=== PATIENT | female | born 1985 | race Caucasian/White ===

== ENCOUNTER 2017-06-05 22:05 | Emergency (ER) | payer BC ==
[2017-06-05] MEDS ORDERED: NS 0.9% 1000 ML*IV.FLUID IV ONE (22:42)
[2017-06-05] MEDS ORDERED: Acetaminophen TAB* 325 MG PO ONE (22:43)
[2017-06-05] MEDS ORDERED: LORazepam INJ* 2 MG/ML 1 ML VIAL IV PUSH ONE (22:44)
[2017-06-05 23:10] LABS: ABS Basophils 0.1 10^3/ul (0-0.2); ABS Eosinophils 0.1 10^3/ul (0-0.6); ABS Lymphocytes 1.6 10^3/ul (1.0-4.8); ABS Monocytes 0.7 10^3/ul (0-0.8); ABS Neutrophils 6.7 10^3/ul (1.5-7.7); ABS Nucleated RBC 0 10^3/ul; Eosinophil % 0.7 % (0-6); Hematocrit 40 % (35-47); Hemoglobin 13.5 g/dl (12.0-16.0); Lymphocyte % 17.5 % (25-47); Mean Corpuscular HGB Conc 34 g/dl (31-36); Mean Corpuscular Hemoglobin 29 pg (27-31); Mean Corpuscular Volume 86 fL (80-97); Mean Platelet Volume 8 um3 (7.4-10.4); Nucleated Red Blood Cells % 0; Platelet Count 212 10^3/ul (150-450); Red Blood Count 4.67 10^6/ul (4.0-5.4); Red Cell Distribution Width 13 % (10.5-15); White Blood Count 9.1 10^3/ul (3.5-10.8)
[2017-06-05 23:26] LABS: EGFR Non-African American 68.7 (>60)
[2017-06-05] MEDS ORDERED: Potassium Chlor TAB* 20 MEQ TAB.ER PO ONE (23:48)
[2017-06-06 00:52] LABS: Urine Appearance Clear; Urine Blood Negative (Negative); Urine Color Yellow; Urine Ketones Negative (Negative); Urine Protein Negative (Negative); Urine Specific Gravity 1.008 (1.010-1.030); Urine Urobilinogen Negative (Negative)
--- NOTE | 2017-06-06 01:11 | ED ---
Patrick Horn Tecjoon scribarnaldo for Slava Adrian MD on 06/05/17 at 2247 . HPI Chest Pain - HPI Summary HPI Summary: This patient is a 31 year old female presenting to [facility] accompanied by male working supervisor with a chief complaint of chest pressure since an hour ago. Patient states that she was just watching TV when her heart starting racing. Patient states that she had previous episode a week ago with similar sx. Patient denies use of any cold medications but has had recent illness. Symptoms aggravated by nothing. Symptoms alleviated by medication. 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 Patient additionally reports chills, shaking, fever. Patient denies a history of anxiety or panic attack. - History of Current Complaint Chief Complaint: EDDysrhythmPalp Time Seen by Provider: 06/05/17 22:26 Hx Obtained From: Patient Onset/Duration: Started Hours Ago Time of Onset: 21:30 Timing: Intermittent Initial Severity: Moderate Current Severity: None Pain Intensity: 0 Pain Scale Used: 0-10 Numeric Chest Pain Radiates: No Aggravating Factor(s): Nothing Alleviating Factor(s): OTC Meds Associated Signs and Symptoms: Positive: Other: - chills, shaking, fever - Allergy/Home Medications Allergies/Adverse Reactions: Allergies Allergy/AdvReac Type Severity Reaction Status Date / Time Amoxicillin Allergy Rash Verified 06/05/17 22:19 Metronidazole [From Flagyl] Allergy Shortness Verified 06/05/17 22:19 of Breath PMH/Surg Hx/FS Hx/Imm Hx Previously Healthy: Yes Opthamlomology History: Denies: Hx Legally Blind EENT History: Denies: Hx Deafness Psychiatric History: Denies: Hx Anxiety, Hx Panic Disorder Infectious Disease History: No Infectious Disease History: Denies: Traveled Outside the [place] in Last 30 Days - Family History Known Family History: Negative: Seizure Disorder - Social History Occupation: Employed Full-time Lives: Alone Hx Substance Use: No Substance Use Type: Reports: None Hx Tobacco Use: No Review of Systems Positive: Fever, Chills, Other - shaking Positive: Palpitations, Chest Pain All Other Systems Reviewed And Are Negative: Yes Physical Exam - Summary Physical Exam Summary: VITAL SIGNS: Reviewed. GENERAL: Patient is a well-developed and nourished female who is lying in the stretcher. Patient is not in any acute respiratory distress. Patient is very anxious. HEAD AND FACE: No signs of trauma. No ecchymosis, hematomas or skull depressions. No sinus tenderness. EYES: PERRLA, EOMI x 2, No injected conjunctiva, no nystagmus. EARS: Hearing grossly intact. Ear canals and tympanic membranes are within normal limits. MOUTH: Oropharynx within normal limits. NECK: Supple, trachea is midline, no adenopathy, no JVD, no carotid bruit, no c- spine tenderness, neck with full ROM. CHEST: Symmetric, no tenderness at palpation LUNGS: Clear to auscultation bilaterally. No wheezing or crackles. CVS: Regular Tachycardia. S1 and S2 present, no murmurs or gallops appreciated. ABDOMEN: Soft, non-tender. No signs of distention. No rebound no guarding, and no masses palpated. Bowel sounds are normal. EXTREMITIES: FROM in all major joints, no edema, no cyanosis or clubbing. NEURO: Alert and oriented x 3. No acute neurological deficits. Speech is normal and follows commands. SKIN: Dry and warm Triage Information Reviewed: Yes Vital Signs On Initial Exam: Initial Vitals Temp Pulse Resp BP Pulse Ox 100.4 F 137 20 155/111 100 06/05/17 22:15 06/05/17 22:15 06/05/17 22:15 06/05/17 22:15 06/05/17 22:15 Vital Signs Reviewed: Yes Diagnostics - Vital Signs Vital Signs Temp Pulse Resp BP Pulse Ox 06/05/17 22:15 100.4 F 137 20 155/111 100 - Laboratory Lab Results: Lab Results 06/05/17 06/05/17 06/05/17 Range/Units 23:00 23:00 23:00 WBC 9.1 (3.5-10.8) 10^3/ul RBC 4.67 (4.0-5.4) 10^6/ul Hgb 13.5 (12.0-16.0) g/dl Hct 40 (35-47) % MCV 86 (80-97) fL MCH 29 (27-31) pg MCHC 34 (31-36) g/dl RDW 13 (10.5-15) % Plt Count 212 (150-450) 10^3/ul MPV 8 (7.4-10.4) um3 Neut % (Auto) 73.3 (38-83) % Lymph % (Auto) 17.5 L (25-47) % Delta % (Auto) 7.9 (1-9) % Eos % (Auto) 0.7 (0-6) % Baso % (Auto) 0.6 (0-2) % Absolute Neuts (auto) 6.7 (1.5-7.7) 10^3/ul Absolute Lymphs (auto) 1.6 (1.0-4.8) 10^3/ul Absolute Monos (auto) 0.7 (0-0.8) 10^3/ul Absolute Eos (auto) 0.1 (0-0.6) 10^3/ul Absolute Basos (auto) 0.1 (0-0.2) 10^3/ul Absolute Nucleated RBC 0 10^3/ul Nucleated RBC % 0 APTT 26.4 (26.0-36.3) seconds Sodium 137 (133-145) mmol/L Potassium 3.0 L (3.5-5.0) mmol/L Chloride 101 (101-111) mmol/L Carbon Dioxide 26 (22-32) mmol/L Anion Gap 10 (2-11) mmol/L BUN 18 (6-24) mg/dL Creatinine 0.96 H (0.51-0.95) mg/dL Est GFR ( Amer) 88.4 (>60) Est GFR (Non-Af Amer) 68.7 (>60) BUN/Creatinine Ratio 18.8 (8-20) Glucose 123 H (70-100) mg/dL Lactic Acid (0.5-2.0) mmol/L Calcium 9.7 (8.6-10.3) mg/dL Total Bilirubin 0.50 (0.2-1.0) mg/dL AST 15 (13-39) U/L ALT 12 (7-52) U/L Alkaline Phosphatase 40 (34-104) U/L Troponin I 0.00 (<0.04) ng/mL C-Reactive Protein < 1.00 (< 5.00) mg/L Total Protein 7.1 (6.4-8.9) g/dL Albumin 4.3 (3.2-5.2) g/dL Globulin 2.8 (2-4) g/dL Albumin/Globulin Ratio 1.5 (1-3) TSH 1.22 (0.34-5.60) mcIU/mL Urine Color Urine Appearance Urine pH (5-9) Ur Specific Skipwith (1.010-1.030) Urine Protein (Negative) Urine Ketones (Negative) Urine Blood (Negative) Urine Nitrate (Negative) Urine Bilirubin (Negative) Urine Urobilinogen (Negative) Ur Leukocyte Esterase (Negative) Urine WBC (Auto) (Absent) Urine RBC (Auto) (Absent) Ur Squamous Epith Cells (Absent) Urine Bacteria (Absent) Urine Glucose (Negative) Influenza A (Rapid) (Negative) Influenza B (Rapid) (Negative) 06/05/17 06/06/17 06/06/17 Range/Units 23:00 00:25 00:32 WBC (3.5-10.8) 10^3/ul RBC (4.0-5.4) 10^6/ul Hgb (12.0-16.0) g/dl Hct (35-47) % MCV (80-97) fL MCH (27-31) pg MCHC (31-36) g/dl RDW (10.5-15) % Plt Count (150-450) 10^3/ul MPV (7.4-10.4) um3 Neut % (Auto) (38-83) % Lymph % (Auto) (25-47) % Delta % (Auto) (1-9) % Eos % (Auto) (0-6) % Baso % (Auto) (0-2) % Absolute Neuts (auto) (1.5-7.7) 10^3/ul Absolute Lymphs (auto) (1.0-4.8) 10^3/ul Absolute Monos (auto) (0-0.8) 10^3/ul Absolute Eos (auto) (0-0.6) 10^3/ul Absolute Basos (auto) (0-0.2) 10^3/ul Absolute Nucleated RBC 10^3/ul Nucleated RBC % APTT (26.0-36.3) seconds Sodium (133-145) mmol/L Potassium (3.5-5.0) mmol/L Chloride (101-111) mmol/L Carbon Dioxide (22-32) mmol/L Anion Gap (2-11) mmol/L BUN (6-24) mg/dL Creatinine (0.51-0.95) mg/dL Est GFR ( Amer) (>60) Est GFR (Non-Af Amer) (>60) BUN/Creatinine Ratio (8-20) Glucose (70-100) mg/dL Lactic Acid 1.4 (0.5-2.0) mmol/L Calcium (8.6-10.3) mg/dL Total Bilirubin (0.2-1.0) mg/dL AST (13-39) U/L ALT (7-52) U/L Alkaline Phosphatase (34-104) U/L Troponin I (<0.04) ng/mL C-Reactive Protein (< 5.00) mg/L Total Protein (6.4-8.9) g/dL Albumin (3.2-5.2) g/dL Globulin (2-4) g/dL Albumin/Globulin Ratio (1-3) TSH (0.34-5.60) mcIU/mL Urine Color Yellow Urine Appearance Clear Urine pH 6.0 (5-9) Ur Specific Skipwith 1.008 L (1.010-1.030) Urine Protein Negative (Negative) Urine Ketones Negative (Negative) Urine Blood Negative (Negative) Urine Nitrate Negative (Negative) Urine Bilirubin Negative (Negative) Urine Urobilinogen Negative (Negative) Ur Leukocyte Esterase Trace H (Negative) Urine WBC (Auto) Trace(0-5/hpf) (Absent) Urine RBC (Auto) Trace(0-2/hpf) (Absent) Ur Squamous Epith Cells Present H (Absent) Urine Bacteria Absent (Absent) Urine Glucose Negative (Negative) Influenza A (Rapid) Negative (Negative) Influenza B (Rapid) Negative (Negative) Result Diagrams: 06/05/17 23:00 06/05/17 23:00 Lab Statement: Any lab studies that have been ordered have been reviewed, and results considered in the medical decision making process. - Radiology CXR Xray Interpretation: No Acute Changes Radiology Interpretation Completed By: ED Physician, Radiologist - EKG 5605 Cardiac Rate: Tachycardia EKG Rhythm: Sinus Tachycardia - 105 BPM EKG Interpretation: Sinus Tachycardia, Normal axis. Normal interval. No ischemic changes Chest Pain Course/Dx - Course Course Of Treatment: This patient is a 31 year old female presenting to [facility] accompanied by male working supervisor with a chief complaint of chest pressure since an hour ago. Patient states that she was just watching TV when her heart starting racing. Patient states that she had previous episode a week ago with similar sx. An EKG, taken 2222, reveals Sinus Tachycardia (105 BPM), Normal axis. Normal interval. No ischemic changes .CXR reveals, per radiologist, No acute process. ED physician has reviewed this radiology report. Bloodwork Obtained. Urinalysis Obtained. In the ED course the patient was given Ativan, Tylenol, Potassium Chloride. I discussed patients imaging results. Patient is feeling better and her heart rate is <100. The patient will be discharged with a diagnosis for 1. Viral Syndrome and 2. Anxiety. Patient will be given a prescription for Xanax and is advised to follow up with PCP in 3 days. The patient is agreeable with this plan. - Diagnoses Provider Diagnoses: Anxiety, Viral syndrome Discharge - Discharge Plan Condition: Stable Disposition: HOME Prescriptions: ALPRAZolam TAB* [Xanax TAB*] 0.5 mg PO BID PRN #14 tab MDD 2 PRN Reason: Anxiety ALPRAZolam TAB* [Xanax TAB*] 0.5 mg PO BID PRN #14 tab MDD 2 PRN Reason: Anxiety Patient Education Materials: Viral Syndrome (ED), Anxiety (ED) Referrals: No Primary Care Phys,NOPCP [Primary Care Provider] - 3 Days Additional Instructions: The patient will be discharged with a diagnosis for 1. Viral Syndrome and 2. Anxiety. Patient will be given a prescription for Xanax and is advised to follow up with PCP in 3 days. The patient is agreeable with this plan. Take Motrin as needed for Viral syndrome. Take Xanax as directed. RETURN TO EMERGENCY DEPARTMENT FOR ANY NEW OR WORSENING SYMPTOMS The documentation as recorded by the Patrick vazquez Tecjoon accurately reflects the service I personally performed and the decisions made by me, Slava Adrian MD.
[2017-06-06 02:50] VITALS: BP 103/64
--- NOTE | 2017-06-06 08:00 | RAD ---
Indication: Fever. Chest pressure. Comparison: No relevant prior exams available on the [facility] PACS for comparison. Technique: Upright AP 2324 hours Report: Accounting for superimposed dense breast tissue the lungs and pleural spaces are clear. Negative for pneumothorax. The heart, pulmonary vasculature, and mediastinal contours are unremarkable. IMPRESSION: No evidence for pneumonia. Negative exam.
== END 2017-06-06 02:50 | disposition home or self-care (01) ==
LOC: ED 22:05
DX: F41.9 Anxiety disorder, unspecified (principal); B34.9 Viral infection, unspecified; Z88.0 Allergy status to penicillin
CPT/HCPCS: 36415; 71010; 80053; 81003; 81015; 83605; 84443; 84484; 85025; 85730; 86140; 87040; 87086; 87502; 93005; 96360; 96374; 99283; A9270-GY; J2060

== ENCOUNTER 2017-07-04 17:44 | Emergency (ER) | payer BC ==
[2017-07-04 19:52] VITALS: BP 137/88
--- NOTE | 2017-07-04 20:14 | UC ---
Cardiac HPI - HPI Summary HPI Summary: 31 y/o female presents to the urgent care c/o chest pressure w/ movement since after she visited the iropractor. She had a similar complaint about 1 month ago and she went to [place] [facility] She had a full work up and then she was discharged with ibuprofen and a follow up with pasteuriser operator. Auditing Manager did a holter monitor and everything was within normal limits. Today pain is 2/10 on the left lateral side of the ribs without any radiation. Pt denies dizziness, SOB, headache, abd pain, N/V/D. - History of Current Complaint Chief Complaint: UCGeneralIllness Stated Complaint: RIB PAIN Hx Obtained From: Patient Hx Last Menstrual Period: 07/04/17 Onset/Duration: Gradual Onset, Lasting Weeks - 4 weeks, Worse Since - June 30 Timing: Intermittent Episodes Lasting: Initial Severity: Moderate Current Severity: Moderate Pain Intensity: 5 Chest Pain Location: Left Lateral Character: Dull/Aching, Pressure/Squeezing Aggravating Factor(s): Exertion Alleviating Factor(s): Rest, OTC Meds Associated Signs & Symptoms: Positive: Chest Pain. Negative: Headaches, Dizziness, SOB, Nausea/Vomiting, Abdominal Pain Related History: Similar Episode/Dx as - costochondritis - Allergy/Home Medications Allergies/Adverse Reactions: Allergies Allergy/AdvReac Type Severity Reaction Status Date / Time Amoxicillin Allergy Rash Verified 07/04/17 19:43 Metronidazole [From Flagyl] Allergy Shortness Verified 07/04/17 19:43 of Breath PMH/Surg Hx/FS Hx/Imm Hx Previously Healthy: Yes - Pt denies PMHx - Surgical History Surgical History: None - Family History Known Family History: Positive: Hypertension, Diabetes Negative: Seizure Disorder - Social History Occupation: Employed Full-time Lives: With Family Alcohol Use: Occasionally Substance Use Type: None Smoking Status (MU): Former Smoker Review of Systems Constitutional: Negative Skin: Negative Eyes: Negative ENT: Negative Respiratory: Negative Cardiovascular: Chest Pain Gastrointestinal: Negative Genitourinary: Negative Motor: Negative Neurovascular: Negative Musculoskeletal: Negative Neurological: Negative Psychological: Negative Is Patient Immunocompromised?: No All Other Systems Reviewed And Are Negative: Yes Physical Exam Triage Information Reviewed: Yes Vital Signs: Initial Vital Signs Temp 100 F 07/04/17 19:44 Pulse 83 07/04/17 19:44 Resp 16 07/04/17 19:44 BP 137/88 07/04/17 19:44 Pulse Ox 98 07/04/17 19:44 Vital Signs Reviewed: Yes - Additional Comments Vital signs: reviewed General: awake and alert, in no obvious distress. Skin: [place], warm and dry, no diaphoresis, cyanosis or pallor. HEENT: -Head: normocephalic -Eyes: PERRLA, sclera and conjunctiva clear. -Ears:canals and TMs normal. -Nose: patent -Mouth/Throat: MMM, posterior pharynx clear. Neck: supple. FROM, No JVD, trachea in midline, no bruits. Chest: no orthopnea or dyspnea noted; no retractions or accessory muscle use, NT , no crepitus, CTA bilaterally, no wheezes, rhonchi, rales. Point tenderness on the left lateral side of the ribs and left side of the sternum. No swelling observed or erythema. Heart: RRR, no murmur, rub, or gallop. Abd: soft, NT, BSA, no epigastric tenderness, mass, pulsation; femoral pulses. Back: NT, no CVAT Extrems: no swelling, edema, tenderness. Neuro: A&O x 4, GCS 15, CNII XII intact, no LOC and no focal neuro deficits. - Assessment/Plan Course Of Treatment: 31 y/o female presents to the urgent care c/o chest pressure w/ movement since after she visited the [facility]. She had a similar complaint about 1 month ago and she went to [place] [facility]. She had a full work up and then she was discharged with ibuprofen and a follow up with pasteuriser operator. Auditing Manager did a holter monitor and everything was within normal limits. Today pain is 2/10 on the left lateral side of the ribs without any radiation. Pt denies dizziness, SOB, headache, abd pain, N/V/D. Hx obtained. EKG ordered. EKG shows NSR, heart rate of 80 bpm, normal axis, No ST elevations or depressions. Dr. Rivers consulted on pt's symptoms. She reviewed EKG and compared with previous one and agreed that normal EKG. Pt with costochondritis. Pt prescribed Tylenol and Omeprazole PO to alleviate symptoms. Advised to flu with her pasteuriser operator if not improvement of symptoms. However if she developed SOB and severe chest pain to go immediately to the ER for further management. Pt explained D/C instructions. Pt understood and agreed with plan of care. Left the clinic A&OX3 and hemodynamically stable. - Differential Diagnoses - Chest Pain Differential Diagnosis/HQI/PQRI: Acute UT, Angina, GI Disease, Pulmonary Embolism - Differential Diagnoses - Palpitations Differential Diagnosis/HQI/PQRI: Cardiomyopathy, Mitral Valve Prolapse, Pericarditis, Pulmonary Embolism - Clinical Impression Provider Diagnoses: 1 - Costochondritis. 2 - GERD Discharge - Discharge Plan Condition: Stable Disposition: HOME Prescriptions: Acetaminophen TAB* [Tylenol TAB*] 650 mg PO Q6H PRN #30 tab PRN Reason: Pain Omeprazole CAP* [Prilosec CAP* 20 MG] 20 mg PO DAILY #30 cap. Patient Education Materials: Costochondritis (ED), Gastroesophageal Reflux Disease (ED) Referrals: Sharona Amaro [Primary Care Provider] - 3 Days Additional Instructions: 1-Please take Tylenol PO q6-8hrs prn as instructed after meals to alleviate pain and swelling. Avoid strenuous exercise 2- Take Omeprazole PO as directed for GERD. Avoid spicy food, tomato sauce, chocolates etc. 3-Please f/u with your PCP in 2-3 days for further evaluation and treatment. 4-If you develop SOB, palpitation, severe chest pain, please go immediately to the Er for further treatment
== END 2017-07-04 21:06 | disposition home or self-care (01) ==
LOC: UCEAST 17:44
DX: M94.0 Chondrocostal junction syndrome [Tietze] (principal); K21.9 Gastro-esophageal reflux disease without esophagitis; Z88.1 Allergy status to other antibiotic agents; Z87.891 Personal history of nicotine dependence
CPT/HCPCS: 93005; 99212; G0463

== ENCOUNTER 2017-10-20 17:45 | Emergency (ER) | payer BC ==
[2017-10-20 18:13] VITALS: BP 123/86
[2017-10-20] MEDS ORDERED: diPHENhydraMINE IV* 50 MG/ML 1 ml VIAL (BENADRYL) IV ONE (18:27)
[2017-10-20] MEDS ORDERED: Metoclopramide TAB* 10 MG PO ONE (18:27)
[2017-10-20] MEDS ORDERED: Ketorolac INJ* 60 MG/2 ML VIAL IM ONE (18:27)
[2017-10-20] MEDS ORDERED: Ketorolac INJ* 60 MG/2 ML VIAL IV PUSH ONE ×2 (18:32→18:34)
[2017-10-20] MEDS ORDERED: Metoclopramide IV* 5 MG/ML 2 ML VIAL IV ONE (18:33)
[2017-10-20] MEDS ORDERED: NS 0.9% 1000 ML* 1,000 ML IV ONE (18:34)
[2017-10-20] MEDS ORDERED: Ketorolac INJ* 30 MG/ML 1 ML VIAL IV PUSH ONE (18:36)
--- NOTE | 2017-10-20 19:20 | RAD ---
INDICATION: Headache COMPARISON: None TECHNIQUE: Noncontrast axial source images were acquired from the skull base to the vertex. FINDINGS: Ventricles/sulci: The ventricles and cisterns are normal in size and configuration for age. Brain parenchyma: There is no focal parenchymal finding, evidence of intracranial mass, or intracranial mass effect. Intracranial hemorrhage:None. Extra-axial spaces: There are no abnormal extra axial fluid collections or evidence of extra-axial mass. Calvarium: There is no calvarial fracture or other calvarial abnormality. Scalp: There is no evidence of scalp or extracalvarial soft tissue abnormality. Paranasal sinuses/mastoid: The paranasal sinuses and mastoid air cells are clear. Other: None. IMPRESSION: NEGATIVE EXAMINATION
--- NOTE | 2017-10-20 19:41 | UC ---
Jhoan Horn Natalie, scribed for Guillaume Layne MD on 10/20/17 at 1838 . Headache HPI - HPI Summary HPI Summary: The patient is a 32 y/o F presenting to [facility] c/o headache in her left temporal and occipital area that started three weeks ago. The intermittent pain is rated 6/10 in severity. She has taken Ibuprofen and Tylenol today (which usually help) , accompanied by a walk, to little relief. She states that she has a lot of pressure to her head after taking the walk. Now she has a burning pain to the back of her head, and states that this is the worst headache of her life, so she came to . She additionally c/o burning in her nostrils and nausea without vomiting. She denies light sensitivity and visual changes. - History Of Current Complaint Chief Complaint: UCHeadache Stated Complaint: HEADACHE Time Seen by Provider: 10/20/17 18:17 Hx Obtained From: Patient Hx Last Menstrual Period: 07/04/17 Onset/Duration: Sudden Onset, Still Present Onset Of Symptoms: Gradual, Still Present Initially Headache Was: "Worst Headache Ever", Moderate Currently Pain Is: Current Pain Scale(0-10)= - 6 Pain Intensity: 6 Pain Scale Used: 0-10 Numeric Timing: Intermittent, Lasting: Character: Pressure Location of Headache: Other: - left Aggravating Factor(s): Nothing Allevating Factor(s): Medication - ibuprofen, tylenol Associated Signs And Symptoms: Positive: Nausea, Neck Pain. Negative: Vomiting - Allergies/Home Medications Allergies/Adverse Reactions: Allergies Allergy/AdvReac Type Severity Reaction Status Date / Time amoxicillin Allergy Rash Verified 10/20/17 18:13 metronidazole [From Flagyl] Allergy Shortness Verified 10/20/17 18:13 of Breath Home Medications: Home Medications Acetaminophen TAB* [Tylenol TAB*] 1,000 mg PO Q6H PRN 10/20/17 [History Confirmed 10/20/17] Ibuprofen 600 mg PO 10/20/17 [History] PMH/Surg Hx/FS Hx/Imm Hx Other Endocrine History: NEGATIVE: diabetes Other Cardiovascular History: NEGATIVE: cardiac disease - Surgical History Surgical History: Yes Surgery Procedure, Year, and Place: [facility] - Family History Known Family History: Positive: Hypertension, Diabetes Negative: Seizure Disorder - Social History Alcohol Use: Rare Substance Use Type: None Smoking Status (MU): Former Smoker Review of Systems Eyes: Other - NEGATIVE: vision changes, light sensitivity ENT: Other - POSITIVE: burning in nostrils; NEGATIVE: neck pain Gastrointestinal: Nausea, Other - NEGATIVE: vomiting Neurological: Headache - left temporal/occipital All Other Systems Reviewed And Are Negative: Yes Physical Exam - Summary Physical Exam Summary: VITAL SIGNS: Reviewed. GENERAL: Patient is a well-developed and nourished young female who is lying comfortable in the stretcher. Patient is not in any acute respiratory distress. She is in some distress connected to pain, but she is not ill-looking. HEAD AND FACE: Normocephalic EYES: PERRLA, EOMI x 2. EARS: Hearing grossly intact. MOUTH: Oropharynx within normal limits. NECK: Supple, trachea is midline, no adenopathy, no JVD, no carotid bruit. No neck pain, Meningeal signs. Afebrile. CHEST: Symmetric, no tenderness at palpation LUNGS: Clear to auscultation bilaterally. No wheezing or crackles. CVS: Regular rate and rhythm, S1 and S2 present, no murmurs or gallops appreciated. ABDOMEN: Soft, non-tender. Bowel sounds are normal. No abdominal abnormal pulsations. EXTREMITIES: Full ROM in all major joints, no edema, no cyanosis or clubbing. NEURO: Alert and oriented x 3. No acute neurological deficits. Speech is normal and follows commands. SKIN: Dry and warm Triage Information Reviewed: Yes Vital Signs: Initial Vital Signs Temp 99.0 F 10/20/17 18:08 Pulse 90 10/20/17 18:08 Resp 18 10/20/17 18:08 BP 123/86 10/20/17 18:08 Pulse Ox 100 10/20/17 18:08 Vital Signs Reviewed: Yes Diagnostics - Radiology Brain CT Xray Interpretation: No Acute Changes - Negative examination. [facility] physician has reviewed this report. Radiology Interpretation Completed By: Radiologist Re-Evaluation - Re-Evaluation First Eval Re-Evaluation Time: 19:34 Change: Improved Comment: The patient feels better after IV fluid and medication intake. Headache Course/Dx - Course Course Of Treatment: The patient is a 32 y/o F presenting to [facility] c/o headache in her left temporal and occipital area that started three weeks ago. The intermittent pain is rated 6/10 in severity. She has taken Ibuprofen and Tylenol FREIGHT RATE CLERK, accompanied by a walk, to little relief. She states that she has a lot of pressure to her head after taking the walk. Now she has a burning pain to the back of her head, and states that this is the worst headache of her life , so she came to . She additionally c/o burning in her nostrils and nausea without vomiting. She denies light sensitivity and visual changes. The patient was found to have increased BP in UC. The patient will follow up with PCP for better control of BP. test is negative, so patient will get Brain CT. Brain CT is negative. In the UC, the patient was administered IV fluids, IV Toradol, and IV Reglan. After IV medications, the patient feels better. I believe the patient has a complex minor headache. She will be discharged home with prescription for Ibuprofen and Reglan for managing nausea. She is advised to return to UC if symptoms worsen. I discussed all the findings and test results with the patient. Patient was instructed to return to the urgent care or go to ER immediately if any of the symptoms return or worsens. Plan of care was discussed with the patient, and patient understands and agrees. All questions were answered to patient satisfaction. There were no further complaints or concerns. - Differential Dx/Diagnosis Provider Diagnoses: Complex headache Discharge - Sign-Out/Discharge Documenting (check all that apply): Discharge/Admit/Transfer - Discharge Plan Condition: Stable Disposition: HOME Prescriptions: Ibuprofen TAB* [Motrin TAB* 600 MG] 600 mg PO Q8H PRN #30 tab PRN Reason: Pain Metoclopramide TAB* [Reglan TAB*] 10 mg PO Q8H #10 tab Patient Education Materials: Acute Headache (ED) Referrals: Sharona Amaro [Primary Care Provider] - Additional Instructions: FOLLOW UP WITH YOUR PRIMARY CARE PROVIDER WITHIN ONE WEEK FOR HIGH BLOOD PRESSURE NOTED TODAY. RETURN TO URGENT CARE OR THE ED FOR ANY WORSENING OR NEW SYMPTOMS. - Billing Disposition and Condition Condition: STABLE Disposition: HOME The documentation as recorded by the Jhoan vazquez Natalie accurately reflects the service I personally performed and the decisions made by me, Guillaume Layne MD.
== END 2017-10-20 19:45 | disposition home or self-care (01) ==
LOC: UCEAST 17:45
DX: G43.809 Other migraine, not intractable, without status migrainosus (principal); R11.0 Nausea; M54.2 Cervicalgia; Z32.02 Encounter for pregnancy test, result negative; Z88.1 Allergy status to other antibiotic agents; Z88.0 Allergy status to penicillin; Z87.891 Personal history of nicotine dependence
CPT/HCPCS: 70450; 84702; 96360; 96374; 96375; 99212; A9270-GY; G0463; J1200; J1885; J2765